=== PATIENT | male | born 1980 | race African-American/Black ===

== ENCOUNTER 2019-01-15 16:01 | Emergency (ER) | payer SELFPAY | END 2019-01-15 18:20 | disposition left against medical advice (07) | LOC: ERS 16:01 | DX: M54.2 Cervicalgia (principal); M54.9 Dorsalgia, unspecified; M25.562 Pain in left knee; F41.9 Anxiety disorder, unspecified; F32.9 Major depressive disorder, single episode, unspecified; F17.210 Nicotine dependence, cigarettes, uncomplicated; V23.4XXA Motorcycle driver injured in collision with car, pick-up truck or van in traffic accident, initial encounter | CPT/HCPCS: 99283 ==

== ENCOUNTER 2019-06-30 17:23 | Emergency (ER) | payer SELFPAY ==
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
[2019-06-30 18:31] LABS: #Eosinphils 0.2 thou/uL (0.0-0.7); #Lymphocytes 1.8 thou/uL (1.20-3.40); #Monocytes 0.5 thou/uL (0.11-0.59); #Neutrophils 4.7 thou/uL (1.40-6.50); %Basophils 0.2 % (0.0-1.0); %Eosinophils 2.7 % (0.0-10.0); %Lymphocytes 24.7 % (21.0-51.0); %Monocytes 7.6 % (0.0-10.0); %Neutrophils 64.9 % (42.0-75.0); Hemoglobin 13.6 g/dL (14.0-18.0); Mean Corpuscular HGB CONC 33.9 g/dL (32.0-36.0); Mean Corpuscular Volume 85.3 fL (78.0-98.0); Platelet Count 234 thou/uL (130-400); RBC Distribution Width 13.5 % (11.5-14.5); Red Blood Cell (RBC) Count 4.71 mill/uL (4.70-6.10); White Blood Cell (WBC) Count 7.2 thou/uL (4.8-10.8)
[2019-06-30 18:53] LABS: ALT (SGPT) 13 U/L (8-55); AST (SGOT) 15 U/L (5-34); Albumin 4.2 g/dL (3.5-5.0); Alkaline Phosphatase 84 U/L (40-110); Anion Gap 11 mmol/L (10-20); BUN (Urea Nitrogen) 18 mg/dL (8.9-20.6); Bilirubin, Total 0.3 mg/dL (0.2-1.2); Calc. Creatinine Clearance 0 mL/min (70-130); Calcium 9.4 mg/dL (7.8-10.44); Carbon Dioxide 26 mmol/L (22-29); Chloride 104 mmol/L (98-107); Estimated GFR-MDRD Greater than 90; Globulin 3.3 g/dL (2.4-3.5); Glucose 103 mg/dL (70-105); Potassium 3.9 mmol/L (3.5-5.1); Protein, Total 7.5 g/dL (6.0-8.3); Sodium 137 mmol/L (136-145)
--- NOTE | 2019-06-30 19:44 | CT ---
CTA CHEST WITH CONTRAST, AND 3-D VOLUME RENDERING CLINICAL INDICATION: Short of breath; Elevated D-dimer Comparison exam: None FINDINGS: Pulmonary embolus:Limited assessment due to heterogeneous bolus. There is no definite large central f illing defect of the pulmonary arteries. Pulmonary parenchymal consolidation:None Limited evaluation of thoracic aorta technique. Pleural effusion: None Pneumothorax: None Osseous structures: No acute process. IMPRESSION: Limited exam, without definite evidence of large, central pulmonary embolus.
[2019-06-30] MEDS ORDERED: Ketorolac Tromethamine 60 MG/2 ML VIAL ONE (20:20)
[2019-06-30] MEDS ORDERED: Dexamethasone 4 mg/ml Vial ONE (20:20)
[2019-06-30] MEDS ORDERED: Acetaminophen 500 MG TAB ONE (20:20)
== END 2019-06-30 21:14 | disposition home or self-care (01) ==
LOC: ERS 17:23
DX: M54.6 Pain in thoracic spine (principal); R07.81 Pleurodynia; F17.210 Nicotine dependence, cigarettes, uncomplicated
CPT/HCPCS: 36415; 71046; 71275; 80053; 84484; 85025; 85379; 93005; 96361; 96372; 96374; J1100; J1885

== ENCOUNTER 2020-04-18 20:06 | Emergency (ER) | payer SELFPAY ==
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
== END 2020-04-18 21:22 | disposition home or self-care (01) ==
LOC: ERS 20:06
DX: S60.221A Contusion of right hand, initial encounter (principal); S50.01XA Contusion of right elbow, initial encounter; F17.210 Nicotine dependence, cigarettes, uncomplicated; V89.2XXA Person injured in unspecified motor-vehicle accident, traffic, initial encounter

== ENCOUNTER 2022-05-15 23:59 | Emergency (ER) | payer OTHER, SELFPAY ==
[2022-05-16] MEDS ORDERED: Metoclopramide HCl 10 MG/2 ML VIAL ONE (00:53)
[2022-05-16] MEDS ORDERED: diphenhydrAMINE 50 MG/ML VIAL ONE (00:53)
[2022-05-16] MEDS ORDERED: Acetaminophen 325 MG TAB ONE (00:55)
== END 2022-05-16 02:40 | disposition home or self-care (01) ==
LOC: ERS 23:59
DX: R51.9 Headache, unspecified (principal); F17.200 Nicotine dependence, unspecified, uncomplicated
CPT/HCPCS: 96361; 96374; 96375; J1200; J2765

== ENCOUNTER 2023-10-13 13:13 | Inpatient (IN) | payer SELFPAY ==
[2023-10-13 15:38] LABS: #Eosinphils 0.1 thou/uL (0.0-0.7); #Monocytes 0.4 thou/uL (0.11-0.59); #Neutrophils 2.9 thou/uL (1.40-6.50); %Basophils 0.9 % (0.0-1.0); %Eosinophils 2.5 % (0.0-10.0); %Lymphocytes 21.7 % (21.0-51.0); %Monocytes 8.1 % (0.0-10.0); %Neutrophils 66.6 % (42.0-75.0); Hematocrit 44.2 % (42.0-52.0); Mean Corpuscular HGB CONC 31.7 g/dL (32.0-36.0); Mean Corpuscular Hemoglobin 27.7 pg (27.0-31.0); Mean Corpuscular Volume 87.4 fl (78.0-98.0); Mean Platelet Volume 11.1 fL (7.4-10.4); Platelet Count 198 10x3/uL (130-400); Red Blood Cell (RBC) Count 5.06 mill/uL (4.70-6.10); White Blood Cell (WBC) Count 4.3 10x3/uL (4.8-10.8)
[2023-10-13 16:06] LABS: Troponin I Less than 0.010 ng/mL (< 0.028)
[2023-10-13 16:09] LABS: ALT (SGPT) 20 U/L (8-55); AST (SGOT) 26 U/L (5-34); Albumin 3.9 g/dL (3.5-5.0); Alkaline Phosphatase 84 U/L (40-110); Anion Gap 16 mmol/L (10-20); BUN (Urea Nitrogen) 17 mg/dL (8.9-20.6); Bilirubin, Total 0.7 mg/dL (0.2-1.2); Calc. Creatinine Clearance 0 mL/min (70-130); Calcium 8.6 mg/dL (7.8-10.44); Carbon Dioxide 21 mmol/L (22-29); Chloride 105 mmol/L (98-107); Estimated GFR 104; Globulin 3.7 g/dL (2.4-3.5); Glucose 115 mg/dL (70-105); Potassium 5.2 mmol/L (3.5-5.1); Protein, Total 7.6 g/dL (6.0-8.3); Sodium 137 mmol/L (136-145)
[2023-10-13 18:03] LABS: Amphetamine Detected (NotDetected); Barbiturates Screen Not Detected (NotDetected); Benzodiazepine Screen Not Detected (NotDetected); Cocaine Metabolite Screen Not Detected (NotDetected); Methadone Not Detected (NotDetected); Methamphetamine Detected (NotDetected); Opiate Screen Not Detected (NotDetected); Oxycodone Screen Not Detected (NotDetected); Phencyclidine (PCP) Not Detected (NotDetected); THC/Cannabinoid Screen Not Detected (NotDetected); Tricyclic Screen Not Detected (NotDetected)
[2023-10-13] MEDS ORDERED: Aspirin Chewable 81 MG TAB ONE (18:04)
[2023-10-13] MEDS ORDERED: Acetaminophen 650 MG Suppository PR PRN (18:05)
[2023-10-13] MEDS ORDERED: Acetaminophen 325 MG TAB PO PRN (18:05)
[2023-10-13] MEDS: Atorvastatin Calcium 40 MG TAB PO SCH (21:22)
[2023-10-14 00:44] VITALS: BMI 25.0
[2023-10-14 06:26] LABS: #Eosinphils 0.1 thou/uL (0.0-0.7); #Monocytes 0.3 thou/uL (0.11-0.59); #Neutrophils 2.1 thou/uL (1.40-6.50); %Basophils 0.3 % (0.0-1.0); %Eosinophils 3.5 % (0.0-10.0); %Lymphocytes 32.6 % (21.0-51.0); %Monocytes 7.5 % (0.0-10.0); %Neutrophils 56.1 % (42.0-75.0); Hematocrit 39.6 % (42.0-52.0); Hemoglobin 12.7 g/dL (14.0-18.0); Mean Corpuscular HGB CONC 32.1 g/dL (32.0-36.0); Mean Corpuscular Hemoglobin 27.1 pg (27.0-31.0); Mean Platelet Volume 10.2 fL (7.4-10.4); Platelet Count 232 10x3/uL (130-400); RBC Distribution Width 14.9 % (11.5-14.5); Red Blood Cell (RBC) Count 4.68 mill/uL (4.70-6.10); White Blood Cell (WBC) Count 3.7 10x3/uL (4.8-10.8)
[2023-10-14 06:32] LABS: Mean Corpuscular Volume 84.6 fl (78.0-98.0)
[2023-10-14 06:50] LABS: Hemoglobin A1c 6.2 % (4.0-6.0)
[2023-10-14 06:51] LABS: Anion Gap 10 mmol/L (10-20); BUN (Urea Nitrogen) 13 mg/dL (8.9-20.6); Calc. Creatinine Clearance 145 mL/min (70-130); Calcium 8.5 mg/dL (7.8-10.44); Carbon Dioxide 25 mmol/L (22-29); Cardiac Risk 3.2 (Less than 4.5); Chloride 107 mmol/L (98-107); Cholesterol 129 mg/dl (< 200 Desired); Estimated GFR 114; Glucose 100 mg/dL (70-105); HDL Cholesterol 40 mg/dL (>60 Neg Risk); LDL Cholesterol, Calculated 77 mg/dL; Potassium 3.8 mmol/L (3.5-5.1); Sodium 138 mmol/L (136-145); Triglycerides 58 mg/dL (Less than 150)
[2023-10-14] MEDS: Enoxaparin 40 MG (0.4 mL) SYRINGE SC SCH (09:30)
[2023-10-14] MEDS: Aspirin 81 mg Enteric Coated Tablet PO SCH (09:30)
[2023-10-14] MEDS ORDERED: Magnevist 469MG/ML 20 ML VIAL ONE (13:17)
[2023-10-14] MEDS ORDERED: Lorazepam 2 MG/ML VIAL SLOW IVP SCH (14:00)
[2023-10-14] MEDS: Atorvastatin Calcium 40 MG TAB PO SCH (20:32)
[2023-10-15] MEDS: Enoxaparin 40 MG (0.4 mL) SYRINGE SC SCH (08:37)
[2023-10-15] MEDS: Aspirin 81 mg Enteric Coated Tablet PO SCH (08:38)
[2023-10-15] MEDS ORDERED: Lorazepam 2 MG/ML VIAL SLOW IVP SCH ×2 (09:00→14:45)
[2023-10-15 12:45] VITALS: TEMP 98.4
[2023-10-15 14:32] VITALS: BP 127/77
== END 2023-10-15 19:00 | disposition home or self-care (01) | DRG 74 ==
LOC: SUATTDRO 13:13 → ERS 13:13 → 2SW 18:03 → OBSVTOIN 10-15 08:17
PROVIDERS: ADMIT Family Medicine; ATTEND Family Medicine
DX: G57.81 Other specified mononeuropathies of right lower limb (principal); M21.371 Foot drop, right foot; F17.210 Nicotine dependence, cigarettes, uncomplicated; Z98.890 Other specified postprocedural states; Z79.82 Long term (current) use of aspirin; Z79.899 Other long term (current) drug therapy; R73.03 Prediabetes
CPT/HCPCS: 36415; 70450; 70553; 71045; 72148; 80048; 80053; 80061; 80306; 83036; 83090; 84443; 84484; 85025; 93005; 93306; 96372; A9579; G0378; J1650; J2060

== ENCOUNTER 2024-07-18 14:32 | Outpatient (CLI) | payer OTHER | END 2024-07-18 14:33 | disposition home or self-care (01) | LOC: SCSRAD 14:32 | PROVIDERS: ATTEND Family Medicine | DX: M54.2 Cervicalgia (principal); M54.50 Low back pain, unspecified; M54.16 Radiculopathy, lumbar region; M47.812 Spondylosis without myelopathy or radiculopathy, cervical region | CPT/HCPCS: 72040; 72100 ==

== ENCOUNTER 2025-08-18 14:22 | Observation (INO) | payer OTHER ==
[~2025-08-18 14:22] MED LIST: Iopamidol-370 76% 500 ML MDV (1 ML CHARGE) ONE
[2025-08-18 14:52] LABS: #Basophils 0.03 10x3/uL (0.0-0.2); #Eosinophils 0.18 10x3/uL (0.0-0.7); #Monocytes 0.42 10x3/uL (0.11-0.59); #Neutrophils 3.48 10x3/uL (1.40-6.50); %Basophils 0.5 % (0.0-1.0); %Eosinophils 3.2 % (0.0-10.0); %Lymphocytes 25.9 % (21.0-51.0); %Monocytes 7.5 % (0.0-10.0); %Neutrophils 62.5 % (42.0-75.0); Hematocrit 45.0 % (42.0-52.0); Hemoglobin 14.7 g/dL (14.0-18.0); Mean Corpuscular Hemoglobin 26.8 pg (27.0-31.0); Mean Corpuscular Volume 82.0 fL (78.0-98.0); Platelet Count 249 10x3/uL (130-400); Red Blood Cell (RBC) Count 5.49 mill/uL (4.70-6.10); White Blood Cell (WBC) Count 5.57 10x3/uL (4.8-10.8)
[2025-08-18] MEDS ORDERED: Ondansetron PF 4 MG/2 ML Vial ONE (15:04)
[2025-08-18 15:10] LABS: ALT (SGPT) 17 U/L (Less than 45); AST (SGOT) 19 U/L (11-34); Albumin 4.4 g/dL (3.1-4.5); Alkaline Phosphatase 75 U/L (40-110); Anion Gap 16 mmol/L (10-20); BUN (Urea Nitrogen) 18 mg/dL (8.9-20.6); Bilirubin, Total 0.3 mg/dL (0.3-1.2); Calc. Creatinine Clearance 0 mL/min (70-130); Calcium 9.4 mg/dL (7.8-10.44); Carbon Dioxide 25 mmol/L (22-29); Chloride 103 mmol/L (98-107); Globulin 3.2 g/dL (2.4-3.5); Glucose 104 mg/dL (70-105); Potassium 4.2 mmol/L (3.5-5.1); Sodium 140 mmol/L (136-145)
[2025-08-18 15:11] LABS: Magnesium 1.9 mg/dL (1.6-2.6)
[2025-08-18 15:12] LABS: Acetaminophen Less than 10 mcg/mL (Less than 10); Salicylate Less than 8.0 mg/dL (Less than 8.0)
[2025-08-18 15:13] LABS: INR-International Normal Ratio 0.9; Prothrombin Time 12.6 sec (12.0-14.7)
[2025-08-18 15:14] LABS: PTT 28.9 sec (22.9-36.1)
[2025-08-18] MEDS ORDERED: Melatonin 3 MG TAB PO PRN (16:44)
[2025-08-18] MEDS ORDERED: hydrALAZINE 20 MG/ML VIAL SLOW IVP PRN (16:44)
[2025-08-18] MEDS ORDERED: Ondansetron PF 4 MG/2 ML Vial IVP PRN (16:44)
[2025-08-18] MEDS ORDERED: Senokot S 8.6-50 MG TAB PO PRN (16:44)
[2025-08-18] MEDS ORDERED: Acetaminophen 325 MG TAB PO PRN (16:44)
[2025-08-18 18:11] VITALS: BMI 26.6
[2025-08-18 22:56] LABS: Cocaine Metabolite Screen Negative (Negative); THC/Cannabinoid Screen PRELIM POSITIVE (Negative); Tricyclic Screen Negative (Negative)
[2025-08-19 04:45] LABS: #Basophils 0.03 10x3/uL (0.0-0.2); #Eosinophils 0.18 10x3/uL (0.0-0.7); #Monocytes 0.38 10x3/uL (0.11-0.59); #Neutrophils 2.57 10x3/uL (1.40-6.50); %Basophils 0.6 % (0.0-1.0); %Eosinophils 3.7 % (0.0-10.0); %Lymphocytes 35.3 % (21.0-51.0); %Monocytes 7.8 % (0.0-10.0); %Neutrophils 52.4 % (42.0-75.0); Hematocrit 42.7 % (42.0-52.0); Hemoglobin 13.9 g/dL (14.0-18.0); Mean Corpuscular Hemoglobin 27.3 pg (27.0-31.0); Mean Corpuscular Volume 83.7 fL (78.0-98.0); Platelet Count 241 10x3/uL (130-400); Red Blood Cell (RBC) Count 5.10 mill/uL (4.70-6.10); White Blood Cell (WBC) Count 4.90 10x3/uL (4.8-10.8)
[2025-08-19 05:06] LABS: Anion Gap 12 mmol/L (10-20); BUN (Urea Nitrogen) 16 mg/dL (8.9-20.6); Calc. Creatinine Clearance 128 mL/min (70-130); Calcium 8.9 mg/dL (7.8-10.44); Carbon Dioxide 24 mmol/L (22-29); Cardiac Risk 3.6 (Less than 4.5); Chloride 108 mmol/L (98-107); Cholesterol 191 mg/dl (< 200 Desired); Glucose 103 mg/dL (70-105); HDL Cholesterol 53 mg/dL (>60 Neg Risk); LDL Cholesterol, Calculated 115 mg/dL; Potassium 4.1 mmol/L (3.5-5.1); Sodium 140 mmol/L (136-145); Triglycerides 116 mg/dL (Less than 150)
[2025-08-19] MEDS: Aspirin 81 mg Enteric Coated Tablet PO SCH (08:13)
[2025-08-19 11:32] VITALS: BP 124/75; TEMP 97.7
[2025-08-21] MEDS ORDERED: PNEUMOC 20-VAL CONJ-DIP CRM/PF 0.5 ML SYRINGE IM ONE (09:00)
== END 2025-08-19 15:30 | disposition home or self-care (01) ==
LOC: ERS 14:22 → OBS 16:28
PROVIDERS: ADMIT Internal Medicine; ATTEND Internal Medicine
DX: R42 Dizziness and giddiness (principal); R11.0 Nausea; R26.2 Difficulty in walking, not elsewhere classified; F17.210 Nicotine dependence, cigarettes, uncomplicated; Z98.52 Vasectomy status; Z88.6 Allergy status to analgesic agent
CPT/HCPCS: 36415; 70496; 70498; 70551; 80048; 80053; 80061; 80306; 80307; 83735; 84484; 85025; 85610; 85730; 93005; 93306; 96374; G0378; J2405; Q9967